=== PATIENT | male | born 1970 | race African-American/Black ===

== ENCOUNTER 2019-11-10 19:30 | Emergency (ER) | payer SELFPAY ==
[2019-11-10 19:57] LABS: #Basophils 0.2 thou/uL (0.0-0.2); #Eosinphils 0.2 thou/uL (0.0-0.7); #Lymphocytes 3.1 thou/uL (1.20-3.40); #Monocytes 0.5 thou/uL (0.11-0.59); #Neutrophils 4.2 thou/uL (1.40-6.50); %Basophils 2.3 % (0.0-1.0); %Monocytes 6.1 % (0.0-10.0); %Neutrophils 51.5 % (42.0-75.0); Mean Corpuscular HGB CONC 30.8 g/dL (32.0-36.0); Mean Corpuscular Hemoglobin 27.6 pg (27.0-31.0); Mean Corpuscular Volume 89.4 fL (78.0-98.0); Mean Platelet Volume 8.9 fL (7.4-10.4); Platelet Count 282 thou/uL (130-400); RBC Distribution Width 11.4 % (11.5-14.5); Red Blood Cell (RBC) Count 5.07 mill/uL (4.70-6.10); White Blood Cell (WBC) Count 8.1 thou/uL (4.8-10.8)
[2019-11-10] MEDS ORDERED: Insulin Regular 300 UNITS/3 ML VIAL ONE (19:59)
[2019-11-10 20:13] LABS: ALT (SGPT) 43 U/L (8-55); AST (SGOT) 24 U/L (5-34); Albumin 4.3 g/dL (3.5-5.0); Alkaline Phosphatase 89 U/L (40-110); Anion Gap 18 mmol/L (10-20); BUN (Urea Nitrogen) 22 mg/dL (8.9-20.6); Bilirubin, Total 0.3 mg/dL (0.2-1.2); Calc. Creatinine Clearance 0 mL/min (70-130); Calcium 9.7 mg/dL (7.8-10.44); Carbon Dioxide 21 mmol/L (22-29); Chloride 98 mmol/L (98-107); Estimated GFR-MDRD 56; Globulin 3.8 g/dL (2.4-3.5); Glucose 504 mg/dL (70-105); Potassium 4.5 mmol/L (3.5-5.1); Protein, Total 8.1 g/dL (6.0-8.3); Sodium 132 mmol/L (136-145)
[2019-11-10 20:15] LABS: Base Excess-Venous -1.3 mmol/L (-2.0 to 3.0); Bicarbonate (HCO3v) 23.8 mmol/L (22.0-28.0); CO2 Tension (PvCO2) 40.5 mmHg (40.0-50.0); Calcium, Ionized 1.18 mmol/L (See Comments:); Chloride 99 mmol/L (98-107); Hemoglobin - Calc 15.9 g/dL (14.0-18.0); Potassium 4.3 mmol/L (3.5-5.1); Sodium 133 mmol/L (138-145); vO2 Saturation-calc 89.4 % (60.0-85.0)
[2019-11-10 21:25] LABS: Anion Gap 13 mmol/L (10-20); BUN (Urea Nitrogen) 20 mg/dL (8.9-20.6); Calc. Creatinine Clearance 0 mL/min (70-130); Calcium 8.4 mg/dL (7.8-10.44); Carbon Dioxide 22 mmol/L (22-29); Chloride 104 mmol/L (98-107); Estimated GFR-MDRD 71; Glucose 364 mg/dL (70-105); Potassium 4.2 mmol/L (3.5-5.1); Sodium 135 mmol/L (136-145)
[2019-11-11 11:19] LABS: Hemoglobin A1c Greater than 14.0 % (4.0-6.0)
== END 2019-11-10 21:40 | disposition home or self-care (01) ==
LOC: BURERS 19:30
DX: E11.9 Type 2 diabetes mellitus without complications (principal)
CPT/HCPCS: 36416; 80053; 82330; 82803; 83036; 85025; 96361; 96374; J1815